=== PATIENT | female | born 1970 | race Caucasian/White ===

== ENCOUNTER 2020-01-30 12:16 | Emergency (ER) | payer MEDICAID, OTHER ==
[2020-01-30] MEDS ORDERED: Sodium Chloride 0.9% 10 ML Syringe FLUSH PRN ×2 (12:23→12:45)
[2020-01-30] MEDS ORDERED: Iopamidol 755 Mg/ML 100 ML Bottle IVPUSH ONE (12:45)
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
--- NOTE | 2020-01-30 13:32 | CT ---
CT cervical spine Technique: Multiple axial sections were obtained from above C1 inferiorly to the bottom of T2. Reconstructed coronal and sagittal images were reviewed. Findings: Mild degenerative change is noted between the dens and anterior arch of C1. Moderate disc space narrowing is noted at C4-5 with severe disc space narrowing at C5-6 and C6-7. Small amount of epidural air is seen posterior to C6-7 compatible with annular rupture. Posterior osteophytes are seen at C5-6 and C6-7. Scattered osteophytes off the uncovertebral joints is noted at C4-5, C5-6 and C6-7. Mild degenerative apophyseal change is scattered throughout the cervical spine. Mild bilateral neural foraminal stenosis is noted at C5-6. Minimal left-sided neural foraminal stenosis is noted at C6-7. Other neural foramina are patent. No fracture is appreciated. No abnormal subluxation is appreciated. Impression: 1. Diffuse degenerative change as described above. 2. No acute osseous finding is appreciated. Diagnostic code #2 This report was dictated in MDT
--- NOTE | 2020-01-30 13:40 | CT ---
CT chest Technique: Multiple axial sections through the chest were obtained. Intravenous contrast was utilized. Comparison: No prior chest imaging is available. Findings: Aorta shows no aneurysm. Pulsation artifact is seen. Mediastinum and hilar region show no adenopathy. No mediastinal hematoma is seen. No axillary adenopathy is seen. No pericardial thickening is appreciated. Lungs show no acute parenchymal change. No pulmonary contusion is seen. No pleural effusions are noted. No pneumothorax is appreciated. Bone window settings were reviewed. Slight degenerative change scattered throughout the spine. No acute osseous finding is appreciated. Impression: 1. Nothing acute is appreciated on CT study of the chest. Diagnostic code #2 This report was dictated in MDT CT abdomen and pelvis Technique: Multiple axial sections were obtained from above the dome of the diaphragm inferiorly through the pubic symphysis. Intravenous contrast was utilized. No oral contrast has been given. Findings: Liver contains no focal parenchymal abnormality. Gallbladder contains no calcified gallstones. Spleen appears normal. Adrenal glands show no nodule. Kidneys show symmetric contrast enhancement without hydronephrosis or mass. Pancreas shows no abnormality. Aorta shows no aneurysm with minimal atherosclerotic change. No retroperitoneal adenopathy is seen. No mesenteric abnormalities are seen. No pelvic mass or adenopathy is appreciated. Appendix is seen which is normal in size. No free fluid or inflammatory change is appreciated. Bone window settings were reviewed which shows mild degenerative change within the lumbar spine. No acute osseous finding is appreciated. Impression: 1. Findings as described above. 2. Nothing acute is appreciated on CT study of the abdomen and pelvis. Diagnostic code #2 This report was dictated in MDT
--- NOTE | 2020-01-30 13:41 | CT ---
Head CT Technique: Multiple axial sections through the brain were obtained. Intravenous contrast was not utilized. Comparison: No prior intracranial imaging is available. Findings: Ventricles along with basal cisterns and sulci over the convexities are within normal limits for the patient's age. No abnormal parenchymal densities are seen. No evidence of intracranial hemorrhage or mass-effect is appreciated. No acute paranasal sinus findings or mastoid sinus findings are seen. No acute calvarial finding is seen on bone window settings. Impression: 1. Nothing acute is appreciated on noncontrast head CT exam. Diagnostic code #1 This report was dictated in MDT
== END 2020-01-30 14:30 | disposition home or self-care (01) ==
LOC: JD.ED 12:16
DX: S16.1XXA Strain of muscle, fascia and tendon at neck level, initial encounter (principal); S39.012A Strain of muscle, fascia and tendon of lower back, initial encounter; F17.210 Nicotine dependence, cigarettes, uncomplicated; V89.2XXA Person injured in unspecified motor-vehicle accident, traffic, initial encounter
CPT/HCPCS: 36415; 70450; 71260; 72125; 74177; 80053; 80306; 80307; 81001; 83690; 85025; 99285; Q9967; 99283